=== PATIENT | female | born 1945 | race Caucasian/White ===

== ENCOUNTER 2016-06-21 05:45 | Inpatient (IN) | payer MEDICARE ==
[2016-06-18 14:53] VITALS: BP 120/88
[2016-06-18 15:38] LABS: ASPARTATE AMINO TRANSFERASE 24 U/L (15-37); BLOOD UREA NITROGEN 13 mg/dL (7-18)
[~2016-06-21] VITALS: Ht 167.6 cm; Wt 74.0 kg
[~2016-06-21 05:45] MED LIST: ASPI-515 PO; ASPI325T4 PO; CHOL2000 PO; CHOL4PAC2 PO; CIPR500T87 PO; ESTR0.5T PO; GABA300C10 PO; HYDR-3307 PO; HYDR25TA6 PO; IRBE300T16 PO; LEVO137T3 PO; METR500T PO; PANT40TA5 PO; VITA1CAP PO
[2016-06-21] MEDS ORDERED: LACTATED RINGERS 1,000 ML IV SCH (06:09)
[2016-06-21] MEDS ORDERED: metroNIDAZOLE 500 MG TABLET PO ONE (06:30)
[2016-06-21] MEDS ORDERED: NEOMYCIN SULFATE 500 MG TABLET PO ONE (06:30)
[2016-06-21] MEDS ORDERED: BUPIVACAINE/PF-EPI 0.5% 1:200K ONE (06:54)
[2016-06-21] MEDS ORDERED: HYDROmorphone 1 MG/ML, 1ML ONE (07:20)
[2016-06-21] MEDS ORDERED: FENTANYL PF 250 MCG/5ML ONE (07:21)
[2016-06-21] MEDS ORDERED: REMIFENTANIL 2 MG ONE (08:25)
[2016-06-21] MEDS ORDERED: INDOCYANINE GREEN 25 MG VIAL ONE (08:27)
[2016-06-21] MEDS ORDERED: LABETALOL 5MG/ML, 20ML IV PRN (10:00)
[2016-06-21] MEDS ORDERED: OXYcodone 5 MG/5 ML ORAL.SOL UDC PO PRN (10:00)
[2016-06-21] MEDS ORDERED: HYDROcodone/APAP 7.5-325MG/15ML UDC PO PRN (10:00)
[2016-06-21] MEDS ORDERED: ONDANSETRON 2MG/ML, 2ML IVPush PRN ×2 (10:00→10:30)
[2016-06-21] MEDS ORDERED: ACETAMINOPHEN 325 MG TABLET PO PRN (10:00)
[2016-06-21] MEDS ORDERED: PROMETHAZINE 25 MG/ML, 1ML IV PRN (10:00)
[2016-06-21] MEDS ORDERED: HYDROmorphone 1 MG/ML, 1ML IV PRN ×2 (10:00→10:30)
[2016-06-21] MEDS ORDERED: METOCLOPRAMIDE 5 MG/ML, 2ML IV PRN (10:00)
[2016-06-21] MEDS ORDERED: hydrALAzine 20 MG/ML, 1ML IV PRN (10:00)
[2016-06-21] MEDS ORDERED: FENTANYL PF 100 MCG/2ML IV PRN (10:00)
[2016-06-21] MEDS ORDERED: EPHEDRINE 50 MG/ML, 1ML IVPush PRN (10:00)
[2016-06-21] MEDS: LACTATED RINGERS 1,000 ML IV SCH ×2 (10:06→20:41)
[2016-06-21] MEDS ORDERED: ESTRADIOL 0.5 MG TABLET PO SCH ×2 (10:30→11:44)
[2016-06-21] MEDS ORDERED: ENALAPRILAT 1.25 MG/ML, 2ML IV PRN (10:30)
[2016-06-21] MEDS ORDERED: LORazepam 2 MG/ML, 1ML IV PRN (10:30)
[2016-06-21] MEDS ORDERED: FENTANYL PF 100 MCG/2ML ONE (10:33)
[2016-06-21] MEDS ORDERED: HYDROmorphone 2 MG/ML, 1ML ONE (10:33)
[2016-06-21] MEDS ORDERED: OXYcodone 5 MG/5 ML ORAL.SOL UDC ONE (10:33)
[2016-06-21 11:30] VITALS: BP 120/70
[2016-06-21 12:15] VITALS: BP 116/71
[2016-06-21] MEDS: ENOXAPARIN 30 MG/0.3 ML SQ SCH ×2 (13:49→22:10)
[2016-06-21] MEDS ORDERED: CEFOTETAN 2 GM ONE (15:32)
[2016-06-21] MEDS ORDERED: ROCURONIUM 10 MG/ML ONE (15:32)
[2016-06-21] MEDS ORDERED: DEXAMETHASONE 4 MG/ML, 1ML ONE (15:32)
[2016-06-21] MEDS ORDERED: GLYCOPYRROLATE 0.2MG/1ML ONE (15:32)
[2016-06-21] MEDS ORDERED: ONDANSETRON 2MG/ML, 2ML ONE (15:32)
[2016-06-21] MEDS ORDERED: LABETALOL 5MG/ML ONE (15:32)
[2016-06-21] MEDS ORDERED: PHENYLEPHRINE 10 MG/ML ONE (15:32)
[2016-06-21] MEDS ORDERED: NEOSTIGMINE 1 MG/ML, 10ML ONE (15:32)
[2016-06-21] MEDS ORDERED: PROPOFOL 10 MG/ML, 50ML ONE ×2 (15:32)
[2016-06-21] MEDS ORDERED: hydrALAzine 20 MG/ML, 1ML ONE (15:32)
[2016-06-21] MEDS: OXYcodone 5 MG/5 ML ORAL.SOL UDC PO PRN ×2 (16:23→20:36)
[2016-06-21 19:12] VITALS: BP 100/65
[2016-06-21] MEDS: CEFOTETAN PMX 2GM/50ML 50 ML IVPB SCH (20:21)
[2016-06-21 23:46] VITALS: BP 108/72
[2016-06-22] MEDS: OXYcodone 5 MG/5 ML ORAL.SOL UDC PO PRN ×6 (00:48→22:37)
[2016-06-22 03:39] VITALS: BP 115/74
[2016-06-22 05:47] LABS: BLOOD UREA NITROGEN 6 mg/dL (7-18)
[2016-06-22 05:48] LABS: HEMOGLOBIN 10.8 g/dL (11.7-16.4)
[2016-06-22] MEDS: LACTATED RINGERS 1,000 ML IV SCH ×2 (05:48→10:06)
[2016-06-22] MEDS: LEVOTHYROXINE 137 MCG TABLET PO SCH ×2 (07:40→10:06)
[2016-06-22] MEDS: CEFOTETAN PMX 2GM/50ML 50 ML IVPB SCH (07:41)
[2016-06-22] MEDS: ASPIRIN 81 MG TABLET EC PO SCH (08:26)
[2016-06-22] MEDS: ESTRADIOL 0.5 MG TABLET PO SCH (08:26)
[2016-06-22] MEDS: IRBESARTAN 300 MG TABLET PO SCH (08:26)
[2016-06-22] MEDS: HYDROCHLOROTHIAZIDE 25 MG TABLET PO SCH (08:26)
[2016-06-22] MEDS: ENOXAPARIN 30 MG/0.3 ML SQ SCH ×2 (08:56→21:11)
[2016-06-22] MEDS: DOCUSATE 100 MG CAPSULE PO SCH ×2 (10:05→21:14)
[2016-06-22] MEDS ORDERED: LACTATED RINGERS 1,000 ML IV SCH (10:06)
[2016-06-22 13:31] VITALS: BP 127/79
[2016-06-22] MEDS: CHOLESTYRAMINE 4GM PACKET PO SCH (14:02)
[2016-06-22 19:13] VITALS: BP 109/69
[2016-06-23 01:46] VITALS: BP 104/66
[2016-06-23] MEDS: OXYcodone 5 MG/5 ML ORAL.SOL UDC PO PRN ×5 (03:15→22:45)
[2016-06-23] MEDS: LACTATED RINGERS 1,000 ML IV SCH (06:06)
[2016-06-23 06:33] VITALS: BP 125/75
[2016-06-23] MEDS: LEVOTHYROXINE 137 MCG TABLET PO SCH (08:02)
[2016-06-23] MEDS: DOCUSATE 100 MG CAPSULE PO SCH ×2 (08:03→22:45)
[2016-06-23] MEDS: IRBESARTAN 300 MG TABLET PO SCH (08:03)
[2016-06-23] MEDS: ASPIRIN 81 MG TABLET EC PO SCH (08:03)
[2016-06-23] MEDS: HYDROCHLOROTHIAZIDE 25 MG TABLET PO SCH (08:04)
[2016-06-23] MEDS: ESTRADIOL 0.5 MG TABLET PO SCH (08:04)
[2016-06-23] MEDS: PANTOPROZOLE 40MG TABLET PO SCH (08:04)
[2016-06-23] MEDS: CHOLESTYRAMINE 4GM PACKET PO SCH (09:14)
[2016-06-23] MEDS: ENOXAPARIN 30 MG/0.3 ML SQ SCH ×2 (09:15→22:45)
[2016-06-23 12:09] VITALS: BP 106/67
[2016-06-23 12:26] LABS: HEMOGLOBIN 12.3 g/dL (11.7-16.4)
[2016-06-23 12:28] LABS: BLOOD UREA NITROGEN 3 mg/dL (7-18)
[2016-06-23 21:16] VITALS: BP 112/65
[2016-06-24] MEDS: LACTATED RINGERS 1,000 ML IV SCH ×2 (02:06→20:26)
[2016-06-24 02:10] VITALS: BP 119/75
[2016-06-24] MEDS: OXYcodone 5 MG/5 ML ORAL.SOL UDC PO PRN ×4 (03:23→20:20)
[2016-06-24 05:50] LABS: HEMOGLOBIN 11.5 g/dL (11.7-16.4)
[2016-06-24 06:09] LABS: BLOOD UREA NITROGEN 4 mg/dL (7-18)
[2016-06-24 06:47] VITALS: BP 123/80
[2016-06-24] MEDS: LEVOTHYROXINE 137 MCG TABLET PO SCH (08:46)
[2016-06-24] MEDS: HYDROCHLOROTHIAZIDE 25 MG TABLET PO SCH (08:46)
[2016-06-24] MEDS: ASPIRIN 81 MG TABLET EC PO SCH (08:46)
[2016-06-24] MEDS: ESTRADIOL 0.5 MG TABLET PO SCH (08:46)
[2016-06-24] MEDS: CHOLESTYRAMINE 4GM PACKET PO SCH (08:47)
[2016-06-24] MEDS: IRBESARTAN 300 MG TABLET PO SCH (08:47)
[2016-06-24] MEDS: DOCUSATE 100 MG CAPSULE PO SCH ×2 (08:47→20:19)
[2016-06-24] MEDS: ENOXAPARIN 30 MG/0.3 ML SQ SCH ×2 (08:48→20:19)
[2016-06-24] MEDS ORDERED: POTASSIUM CHLORIDE 20 MEQ TAB.ER.PRT PO ONE (10:30)
[2016-06-24 13:03] VITALS: BP 100/66
[2016-06-24 19:52] VITALS: BP 112/67
[2016-06-25] MEDS: OXYcodone 5 MG/5 ML ORAL.SOL UDC PO PRN ×2 (01:30→05:51)
[2016-06-25 01:33] VITALS: BP 137/83
[2016-06-25] MEDS ORDERED: LEVOTHYROXINE 137 MCG TABLET PO SCH (06:00)
[2016-06-25 06:26] LABS: HEMOGLOBIN 11.1 g/dL (11.7-16.4)
[2016-06-25 06:30] LABS: BLOOD UREA NITROGEN 4 mg/dL (7-18)
[2016-06-25 08:30] VITALS: BP 118/80
[2016-06-25] MEDS: PANTOPROZOLE 40MG TABLET PO SCH (08:51)
[2016-06-25] MEDS: ASPIRIN 81 MG TABLET EC PO SCH (08:52)
[2016-06-25] MEDS: IRBESARTAN 300 MG TABLET PO SCH (08:52)
[2016-06-25] MEDS: DOCUSATE 100 MG CAPSULE PO SCH (08:52)
[2016-06-25] MEDS: HYDROCHLOROTHIAZIDE 25 MG TABLET PO SCH (08:52)
[2016-06-25] MEDS: ESTRADIOL 0.5 MG TABLET PO SCH (08:53)
[2016-06-25] MEDS: CHOLESTYRAMINE 4GM PACKET PO SCH (08:53)
[2016-06-25] MEDS: ENOXAPARIN 30 MG/0.3 ML SQ SCH (08:53)
[2016-06-25] MEDS ORDERED: OXYC5CAP4 PO (10:40)
[2016-06-25] MEDS ORDERED: DOCU100C8 PO (10:43)
[2016-06-25 13:35] VITALS: BP 114/72
== END 2016-06-25 14:15 | disposition home or self-care (01) | DRG 330 ==
LOC: ORIP 05:45 → 4NOR 11:32
PROVIDERS: ADMIT Surgery; ATTEND Surgery
PROC: 0DNW4ZZ Release Peritoneum, Percutaneous Endoscopic Approach (ICD-10-PCS; 2016-06-21)
PROC: 8E0W4CZ Robotic Assisted Procedure of Trunk Region, Percutaneous Endoscopic Approach (ICD-10-PCS; 2016-06-21)
PROC: 0T788DZ Dilation of Bilateral Ureters with Intraluminal Device, Via Natural or Artificial Opening Endoscopic (ICD-10-PCS; 2016-06-21)
PROC: 4A1BXSH Monitoring of Gastrointestinal Vascular Perfusion using Indocyanine Green Dye, External Approach (ICD-10-PCS; 2016-06-21)
PROC: 0DNL4ZZ Release Transverse Colon, Percutaneous Endoscopic Approach (ICD-10-PCS; principal; 2016-06-21 07:30)
PROC: 0DBN4ZZ Excision of Sigmoid Colon, Percutaneous Endoscopic Approach (ICD-10-PCS; 2016-06-21 07:30)
DX: K57.92 Diverticulitis of intestine, part unspecified, without perforation or abscess without bleeding (principal); N32.1 Vesicointestinal fistula; N73.6 Female pelvic peritoneal adhesions (postinfective); E87.6 Hypokalemia; Z87.440 Personal history of urinary (tract) infections; Z82.49 Family history of ischemic heart disease and other diseases of the circulatory system
CPT/HCPCS: 36415; 80048; 80053; 82040; 85025; 88309; 93005; J1100; J1170; J1650; J2405; J2704; J2710; J3010; J3490; C1769; J0360; J2370; J7120; S0074

== ENCOUNTER 2017-09-22 23:08 | Emergency (ER) | payer MEDICARE ==
[~2017-09-22] VITALS: Ht 160 cm; Wt 67.7 kg
[~2017-09-22 23:08] MED LIST changes: +ASPI325T17 PO; -ASPI325T4 PO; +DOCU100C33 PO; +OXYC5CAP2 PO
[2017-09-22 23:09] VITALS: BP 175/94
[2017-09-22] MEDS ORDERED: PROPARACAINE OPHTH 0.5%, 15ML ONE (23:26)
[2017-09-23] MEDS ORDERED: FLUORESCEIN OPHTHALMIC 1 MG STRIP EACHEYE ONE
[2017-09-23] MEDS ORDERED: PROPARACAINE OPHTH 0.5%, 15ML EACHEYE ONE
== END 2017-09-23 00:45 | disposition home or self-care (01) ==
LOC: ED 09-23 00:44
DX: H57.11 Ocular pain, right eye (principal); H57.8 Other specified disorders of eye and adnexa; H53.8 Other visual disturbances
CPT/HCPCS: 99283